=== PATIENT | female | born 1970 ===

== ENCOUNTER 2023-01-27 12:39 | Outpatient (OUT) | payer OTHER, SELFPAY ==
--- NOTE | 2023-01-27 12:42 | US_ITS ---
The [address] [address] Patient Name: JOEL PRATT MRN: [id number] date: 1970 Sex: F Assigned Patient Location: [place] Current Patient Location: Accession/Order Number: [id number] Exam Date: 01/27/2023 12:43 Report Date: 01/27/2023 22:57 At the request of: CHRIS GONZALEZ Procedure: US pelvis w/ transvaginal EXAMINATION: US pelvis w/ transvaginal HISTORY: PAIN WITH INTERCOURSE , chronic COMPARISON: No relevant comparison available. TECHNIQUE: Transabdominal and/or transvaginal sonographic examination was performed as indicated by examination type. FINDINGS: UTERUS: Hysterectomy. RIGHT OVARY: Not seen. LEFT OVARY: Not seen. CUL-DE-SAC: No appreciable free fluid. BLADDER: Unremarkable. OTHER: None. US/US pelvis w/ transvaginal IMPRESSION: 1. Examination is limited by overlying bowel gas. 2. Neither ovary could be identified. No appreciable abnormal adnexal findings. 3. Technologist notes that the patient did not tolerate the transvaginal exam well and described pain at the episiotomy site. Electronically authenticated by: SHARI PICHARDO Date: 01/27/2023 22:57
== END 2023-01-27 12:40 | disposition home or self-care (01) ==
LOC: US 12:40
PROVIDERS: Visit Provider Obstetrics & Gynecology
DX: R10.2 Pelvic and perineal pain (principal)
CPT/HCPCS: 76830; 76856

== ENCOUNTER 2023-10-14 20:16 | Outpatient (REF) | payer OTHER, SELFPAY | END 2023-10-14 20:17 | disposition home or self-care (01) | LOC: LAB 20:16 | PROVIDERS: Visit Provider Obstetrics & Gynecology | DX: R87.629 Unspecified abnormal cytological findings in specimens from vagina (principal) | CPT/HCPCS: 36415; 87624; 88175 ==